=== PATIENT | female | born 1995 | race Caucasian/White ===

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

== ENCOUNTER 2017-05-10 14:30 | Outpatient (RCR) | payer SELFPAY | END 2017-05-16 11:21 | disposition still patient (30) | LOC: PT 14:30 | DX: S42.201D Unspecified fracture of upper end of right humerus, subsequent encounter for fracture with routine healing (principal) ==